=== PATIENT | female | born 1990 | race Caucasian/White ===

== ENCOUNTER 2023-03-16 09:37 | Day surgery (SDC) | payer OTHER ==
[~2023-03-16] VITALS: Ht 165.1 cm; Wt 87.5 kg
[2023-03-16] MEDS ORDERED: BUPIVACAINE-MPF 0.25% 30 ML VIAL INJ ONE (11:49)
[2023-03-16] MEDS ORDERED: HYDROmorphone PFS 2 MG/ML SYR ONE ×2 (11:58→12:45)
[2023-03-16] MEDS ORDERED: METOCLOPRAMIDE 10 MG/2 ML INJ VIAL ONE (12:02)
[2023-03-16] MEDS ORDERED: PROPOFOL 200 MG/20 ML VIAL IV ONE (12:03)
[2023-03-16] MEDS ORDERED: SUCCINYLCHOLINE CHLORIDE 200 MG/10 ML VIAL IVP ONE (12:03)
[2023-03-16] MEDS ORDERED: ROCURONIUM 50 MG/5 ML VIAL IV ONE (12:03)
[2023-03-16] MEDS ORDERED: KETOROLAC 30 MG/ML VIAL ONE (12:03)
[2023-03-16] MEDS ORDERED: DEXAMETHASONE 4 MG/ML VIAL ONE (12:03)
[2023-03-16] MEDS ORDERED: ONDANSETRON 4 MG/2 ML VIAL ONE (12:03)
[2023-03-16] MEDS ORDERED: SUGAMMADEX SODIUM 200 MG/2 ML VIAL IV ONE (12:23)
[2023-03-16] MEDS ORDERED: HYDROmorphone 1 MG/ML AMP IVP PRN (12:40)
[2023-03-16] MEDS ORDERED: ACETAMINOPHEN 100 ML IV PRN ×2 (13:30→13:40)
== END 2023-03-16 14:10 | disposition home or self-care (01) ==
LOC: MDS 09:37 → MMU 09:38 → MDS 14:10
PROVIDERS: ATTEND Obstetrics & Gynecology
DX: Z30.2 Encounter for sterilization (principal); K21.9 Gastro-esophageal reflux disease without esophagitis; Z79.899 Other long term (current) drug therapy
CPT/HCPCS: 58670; J0330; J1100; J1170; J1885; J2405; J2704; J2765; J3490; J7120